=== PATIENT | female | born 1990 | race Caucasian/White ===

== ENCOUNTER 2022-08-28 19:54 | Emergency (ER) | payer MEDICAID ==
[~2022-08-28] VITALS: Ht 160 cm; Wt 85.7 kg
[2022-08-28 20:16] VITALS: BP 126/83
--- NOTE | 2022-08-28 20:28 | NUR ---
Called [facility] [phone], They recommended , patient will go to [facility] to report herself, if she will be release from hospital, but if she will be admit to hospital, contact them again.
--- NOTE | 2022-08-28 21:21 | NUR ---
Patient taken to CT scan via WC.
--- NOTE | 2022-08-28 22:14 | NUR ---
Dr. Purvis explained results and treatment plans.
[2022-08-28] MEDS ORDERED: NAPR-54 PO (22:16)
[2022-08-28 22:19] VITALS: BP 122/83
--- NOTE | 2022-08-28 22:19 | NUR ---
Patient discharged with v/s stable. Written and verbal after care instructions given and explained by Dr. Purvis. Patient alert, oriented and verbalized understanding of instructions. Ambulatory with steady gait. All questions addressed prior to discharge. ID band removed. Patient advised to follow up with PMD. Rx of Naproxen given. Patient educated on indication of medication including possible reaction and side effects. Opportunity to ask questions provided and answered.
[2022-08-28] MEDS ORDERED: IBUPROFEN 600 MG TAB PO ONE (22:20)
== END 2022-08-28 22:19 | disposition home or self-care (01) ==
LOC: MED 19:54
DX: S00.12XA Contusion of left eyelid and periocular area, initial encounter (principal); F32.9 Major depressive disorder, single episode, unspecified; Z79.1 Long term (current) use of non-steroidal anti-inflammatories (NSAID); Y08.89XA Assault by other specified means, initial encounter; Y93.89 Activity, other specified; Y92.89 Other specified places as the place of occurrence of the external cause; Y99.8 Other external cause status
CPT/HCPCS: 70486; 99284